=== PATIENT | male | born 1990 | race African-American/Black ===

== ENCOUNTER 2016-11-04 21:08 | Emergency (ER) | payer OTHER ==
[2016-11-04 20:54] LABS: URINE SOURCE CLEAN CATCH
[2016-11-04 21:03] LABS: URINE APPEARANCE CLEAR; URINE BILIRUBIN NEG (NEG); URINE BLOOD NEG (NEG); URINE COLOR YELLOW; URINE GLUCOSE NEG (NEG); URINE KETONE TRACE (NEG); URINE LEUKOCYTE ESTERASE 2+ (NEG); URINE NITRATE NEG (NEG); URINE PROTEIN NEG (NEG); URINE SPECIFIC GRAVITY 1.015 (1.003-1.035); URINE UROBILINOGEN 0.2 MG/DL (NEG)
[2016-11-04 21:06] LABS: CULTURE INDICATED? YES; URBCS1 AUWI 0-2 /[HPF] (0-2); URINE BACTERIA AUWI NEG (NEGATIVE); URINE SQUAMOUS EPITHELIAL CELL FEW /[HPF]; UWBCS1 AUWI 50-100 (0-5)
[~2016-11-04 21:08] MED LIST: AMOXICILLIN500 M1 PO; LORTAB 5/500 TA1 TA1 PO
[2016-11-10 20:39] LABS: CHLAMYDIA TRACH Not Detected (Not Detected); N GONOR Not Detected (Not Detected)
== END 2016-11-04 21:43 | disposition home or self-care (01) ==
LOC: CFTX 21:08
PROVIDERS: Nurse Practitioner
DX: N34.2 Other urethritis (principal); N39.0 Urinary tract infection, site not specified; Z79.899 Other long term (current) drug therapy
CPT/HCPCS: 81003; 87086; 87491; 87591; 96372; 99283; J0696

== ENCOUNTER 2017-03-01 05:06 | Emergency (ER) | payer OTHER ==
[2017-03-01 05:49] LABS: INFLUENZA A NEG (NEG); INFLUENZA B NEG (NEG)
== END 2017-03-01 07:31 | disposition home or self-care (01) ==
LOC: CED 05:06
DX: J02.0 Streptococcal pharyngitis (principal)
CPT/HCPCS: 87804; 87880; 96372; 99283; J0561